=== PATIENT | male | born 1950 | race Caucasian/White ===

== ENCOUNTER 2019-01-11 16:56 | Inpatient (IN) | payer BC, OTHER ==
[~2019-01-11] VITALS: Ht 185.4 cm; Wt 173.4 kg
[2019-01-11] MEDS ORDERED: methylPREDNISolone SOD SUCC 125 MG/2 ML VL IV ONE (18:30)
[2019-01-11] MEDS ORDERED: ALBUTEROL SULF 2.5 MG/0.5ML(0.5%) NEB SOLN HHN ONE (18:30)
[2019-01-11] MEDS ORDERED: IPRATROPIUM BROM 0.5 MG/2.5ML INH SOL HHN ONE (18:30)
[2019-01-11] MEDS ORDERED: FUROSEMIDE 40 MG/4 ML VIAL IV ONE (19:45)
[2019-01-11 19:58] LABS: Basophils # (auto) 0 uL; Basophils % (auto) 0.3 % (0.0-2.0); Eosinophils # (auto) 0.1 uL; Eosinophils % (auto) 0.5 % (0.0-7.0); Hematocrit 45.6 % (41.0-53.0); Hemoglobin 14.9 g/dL (13.5-17.5); Lymphocytes # (auto) 0.5 uL; Lymphocytes % (auto) 3.8 % (10.0-50.0); Mean Corpuscular Hemoglobin 29.7 pg (28.0-32.0); Mean Corpuscular Hgb Conc. 32.7 g/dL (32.0-36.0); Mean Corpuscular Volume 90.7 fL (80.0-100.0); Monocytes # (auto) 0.6 uL; Monocytes % (auto) 4.6 % (0.0-12.0); Neutrophils % (auto) 90.8 % (37.0-80.0); Platelet Count (auto) 233 10^3/uL (140-450); Red Blood Cells 5.02 10^6/uL (4.5-5.90); Red Cell Distribution Width 14.2 % (11.8-14.3); White Blood Cell 13.2 10^3/uL (4.4-10.8)
[2019-01-11 20:10] LABS: Albumin 3.8 g/dL (3.4-5.0); Calcium 9.5 mg/dL (8.5-10.1); Potassium 4.1 mmol/L (3.5-5.1)
[2019-01-11 20:13] LABS: BUN/Creatinine Ratio 18.5; Bilirubin, Total 0.6 mg/dL (0.2-1.0); Total Protein 7.4 g/dL (6.4-8.2)
[2019-01-12] MEDS ORDERED: LORazepam 2MG/ML-1ML VIAL IV PRN (03:00)
[2019-01-12] MEDS ORDERED: ACETAMINOPHEN 500 MG TAB PO PRN (03:00)
[2019-01-12] MEDS ORDERED: ONDANSETRON HCL 4 MG/2 ML VIAL IV PRN (03:00)
[2019-01-12] MEDS ORDERED: TEMAZEPAM 15 MG CAP PO PRN (03:00)
[2019-01-12 03:35] VITALS: BP 91/42
[2019-01-12 04:39] LABS: Urine Bacteria FEW /hpf (None Seen); Urine Blood TRACE /uL (Negative); Urine Mucus FEW (None Seen); Urine WBC 8 /hpf (0 - 3)
[2019-01-12] MEDS: cefTRIAXone 1GM/50ML D5W 50 ML IV SCH (05:00)
[2019-01-12 05:31] VITALS: BP 118/62
[2019-01-12] MEDS ORDERED: DEXTROSE (50%) 50ML SYRG IV PRN (05:45)
[2019-01-12] MEDS ORDERED: PIOG15TA25 PO (05:53)
[2019-01-12] MEDS ORDERED: FINA5TAB4 PO (05:53)
[2019-01-12] MEDS ORDERED: ASPI81TA27 PO (05:53)
[2019-01-12] MEDS ORDERED: ASCO100076 PO (05:53)
[2019-01-12] MEDS ORDERED: SIMV-13 PO (05:53)
[2019-01-12] MEDS ORDERED: MULTCAP45 PO (05:53)
[2019-01-12] MEDS ORDERED: IRBE75TA3 PO (05:53)
[2019-01-12] MEDS ORDERED: AZITHROMYCIN 500MG/ 250ML 250 ML IV SCH (06:00)
[2019-01-12] MEDS ORDERED: FUROSEMIDE 20 MG/2 ML VIAL IV SCH ×2 (06:00→10:00)
[2019-01-12] MEDS: IPRATROPIUM BROM 0.5 MG/2.5ML INH SOL NEB SCH ×5 (06:56→23:00)
[2019-01-12] MEDS: ALBUTEROL SULF 2.5 MG/0.5ML(0.5%) NEB SOLN NEB SCH ×5 (06:56→23:00)
[2019-01-12] MEDS ORDERED: PNEUMOCOCCAL VACC POLYS 25 MCG/0.5 ML VIAL IM ONE (07:00)
[2019-01-12 07:15] LABS: Basophils # (auto) 0 uL; Basophils % (auto) 0.1 % (0.0-2.0); Eosinophils # (auto) 0 uL; Hematocrit 42.4 % (41.0-53.0); Hemoglobin 14.2 g/dL (13.5-17.5); Lymphocytes # (auto) 0.4 uL; Lymphocytes % (auto) 4.1 % (10.0-50.0); Mean Corpuscular Hemoglobin 30.1 pg (28.0-32.0); Mean Corpuscular Hgb Conc. 33.5 g/dL (32.0-36.0); Monocytes # (auto) 0.1 uL; Monocytes % (auto) 1.4 % (0.0-12.0); Neutrophils # (auto) 9.4 uL; Neutrophils % (auto) 94.4 % (37.0-80.0); Platelet Count (auto) 227 10^3/uL (140-450); Red Blood Cells 4.71 10^6/uL (4.5-5.90); White Blood Cell 9.9 10^3/uL (4.4-10.8)
[2019-01-12 07:30] LABS: Anion Gap 7 (5-15); BUN/Creatinine Ratio 16.3; Blood Urea Nitrogen 14 mg/dL (7-18); Calcium 8.7 mg/dL (8.5-10.1); Carbon Dioxide 26 mmol/L (21-32); Chloride 107 mmol/L (98-107); GFR African American 114 mL/min; GFR Non-African American 95 mL/min; Glucose 177 mg/dL (74-106); Potassium 3.7 mmol/L (3.5-5.1); Sodium 140 mmol/L (136-145)
[2019-01-12] MEDS: ACCU-CHEK COMFORT CURVE STRIP VI SCH ×4 (07:43→21:20)
[2019-01-12] MEDS: InsuLIN REG 1unit/0.01ml Soln (100units/ml) SC SCH ×4 (07:43→21:20)
[2019-01-12] MEDS: FINASTERIDE 5 MG TAB PO SCH (10:34)
[2019-01-12] MEDS: ASPirin-EC 81 mg tab PO SCH (10:34)
--- NOTE | 2019-01-12 17:00 | NUR ---
Telemetry admit from ER NATALYAYESSENIA admitted to Telemetry unit after SBAR received. Patient oriented to BRANDEN SANCHEZ RN primary RN, unit, room, bed, and unit policies regarding patient care and visiting hours. Patient now on continuous telemetry monitoring, tele box # 15 and telemetry reading on arrival to unit is NSR 84 bpm. Patient placed on bedside oxygen, weighed by bed scale and encouraged to call if they need something. All questions and concerns addressed, patient verbalized understanding.
[2019-01-12 17:43] VITALS: BP 134/72
--- NOTE | 2019-01-12 18:00 | NUR ---
PATIENT REFUSED INSULIN Patient blood sugar reading is 140, and 2 units of insulin is the dose due, but he is refusing insulin. No distress noted.
[2019-01-12 20:00] VITALS: BP 110/56
--- NOTE | 2019-01-12 20:00 | NUR ---
Opening Shift Note Assumed care of patient, awake and alert x4. No S/S of distress/SOB on 2l nc, denies pain. Instructed on POC, respiratory culture pending collection, patient states his cough is dry at this time. Cardio consult pending for orthopnea. Instructed to call for assist PRN, will continue to monitor for changes Q1hr and PRN.
--- NOTE | 2019-01-12 21:20 | NUR ---
Insulin refusal for BS 131
[2019-01-12 22:00] VITALS: BP 110/56
--- NOTE | 2019-01-13 00:04 | NUR ---
MD Called/paged Hospitalist called re:positive blood culture- gram positive cocci in clusters . Waiting for call back. Continue care.
[2019-01-13] MEDS: ALBUTEROL SULF 2.5 MG/0.5ML(0.5%) NEB SOLN NEB SCH ×6 (02:00→21:59)
[2019-01-13] MEDS: IPRATROPIUM BROM 0.5 MG/2.5ML INH SOL NEB SCH ×6 (02:00→21:59)
--- NOTE | 2019-01-13 02:30 | NUR ---
returned call Hospitalist Nilo returned call, updated on patient status and reason for call, notified of current antibiotic treatment and confirmed order for respiratory culture, no new orders received. Continue care.
[2019-01-13 05:00] VITALS: BP 117/57
[2019-01-13] MEDS: ACCU-CHEK COMFORT CURVE STRIP VI SCH ×4 (05:32→22:00)
[2019-01-13] MEDS: InsuLIN REG 1unit/0.01ml Soln (100units/ml) SC SCH ×4 (05:32→22:00)
[2019-01-13] MEDS: cefTRIAXone 1GM/50ML D5W 50 ML IV SCH (05:32)
--- NOTE | 2019-01-13 07:50 | NUR ---
Endorsed care to Ginger BLANCO
[2019-01-13 08:00] VITALS: BP 128/65
--- NOTE | 2019-01-13 08:03 | NUR ---
Antibiotic Spoke to pharmacy IV antibiotic time rescheduled for 0900, no IV line available for secondary antibiotic
[2019-01-13 08:56] VITALS: BP 105/72
[2019-01-13] MEDS: AZITHROMYCIN 500MG/ 250ML 250 ML IV SCH (09:08)
[2019-01-13] MEDS: FINASTERIDE 5 MG TAB PO SCH (09:28)
[2019-01-13] MEDS: ASPirin-EC 81 mg tab PO SCH (09:29)
[2019-01-13 12:33] VITALS: BP 112/53
[2019-01-13 16:44] VITALS: BP 103/51
[2019-01-13 20:00] VITALS: BP 103/32
--- NOTE | 2019-01-13 20:35 | NUR ---
Rounds Patient awake and alert x4. No S/S of distress on 2L nc improved SOB, dry cough, medicated as ordered for cough, denies pain. Will continue to monitor changes q1hr and PRN.
[2019-01-13] MEDS: PROMETHAZINE W/CODEINE 5 ML ORAL SYRUP PO PRN (20:45)
--- NOTE | 2019-01-13 23:29 | NUR ---
Rounds Patient awake and alert. No S/S of distress/SOB or pain. Will continue to monitor changes q1hr and PRN.
[2019-01-14] MEDS: IPRATROPIUM BROM 0.5 MG/2.5ML INH SOL NEB SCH ×6 (02:00→22:27)
[2019-01-14] MEDS: ALBUTEROL SULF 2.5 MG/0.5ML(0.5%) NEB SOLN NEB SCH ×6 (02:00→22:27)
--- NOTE | 2019-01-14 02:01 | NUR ---
PT REFUSED MED NEB TX AT THIS TIME. PT STATED HE WOULD LIKE TO REMAIN SLEEPING. WILL CONTINUE WITH NEXT SCHEDULED TX.
[2019-01-14 05:54] VITALS: BP 141/61
[2019-01-14] MEDS: cefTRIAXone 1GM/50ML D5W 50 ML IV SCH (06:46)
[2019-01-14] MEDS: InsuLIN REG 1unit/0.01ml Soln (100units/ml) SC SCH ×4 (06:49→21:19)
[2019-01-14] MEDS: PROMETHAZINE W/CODEINE 5 ML ORAL SYRUP PO PRN ×2 (06:49→22:51)
[2019-01-14] MEDS: ACCU-CHEK COMFORT CURVE STRIP VI SCH ×4 (06:49→21:18)
--- NOTE | 2019-01-14 07:25 | NUR ---
OPENING NOTE ASSUMED CARE OF PT. PT IS SITTING ON BED, AWAKE. HOB HIGH-FOWLERS. PT IS A&O X4. ON 2 LPM/NC, O2 SATURATION 96%. NO SIGNS OF SOB/DISTRESS. ON TELE #15, HR 82. SAFETY PRECAUTIONS IN PLACE INCLUDING, BED SET TO LOWEST POSITION/LOCKED. BEDSIDE RAILS UP X2. CALL LIGHT WITHIN REACH. INSTRUCTED PT TO CALL FOR ASSISTANCE. DISCUSSED POC WITH PT. PT VERBALIZED UNDERSTANDING. WILL CONTINUE TO MONITOR Q 1HR AND PRN.
[2019-01-14 09:00] VITALS: BP 118/67
[2019-01-14] MEDS: AZITHROMYCIN 500MG/ 250ML 250 ML IV SCH (09:35)
[2019-01-14] MEDS: FINASTERIDE 5 MG TAB PO SCH (09:35)
[2019-01-14] MEDS: ASPirin-EC 81 mg tab PO SCH (09:35)
[2019-01-14 13:00] VITALS: BP 83/48
[2019-01-14 17:00] VITALS: BP 121/69
--- NOTE | 2019-01-14 19:20 | NUR ---
ENDORSED CARE TO BELLA BLISS.
[2019-01-14 21:12] VITALS: BP 121/69
[2019-01-14 21:30] VITALS: BP 101/47
--- NOTE | 2019-01-14 22:37 | NUR ---
Respiratory note: PT IS REQUESTING NOT TO BE WOKEN UP IF HE IS SLEEPING FOR HIS NEXT SCHEDULED TX AT 0200.
[2019-01-15 04:05] VITALS: BP 151/86
[2019-01-15] MEDS: ACCU-CHEK COMFORT CURVE STRIP VI SCH ×2 (05:33→11:30)
[2019-01-15] MEDS: cefTRIAXone 1GM/50ML D5W 50 ML IV SCH (05:33)
[2019-01-15] MEDS: InsuLIN REG 1unit/0.01ml Soln (100units/ml) SC SCH ×2 (05:33→11:30)
[2019-01-15] MEDS: IPRATROPIUM BROM 0.5 MG/2.5ML INH SOL NEB SCH ×3 (07:05→14:00)
[2019-01-15] MEDS: ALBUTEROL SULF 2.5 MG/0.5ML(0.5%) NEB SOLN NEB SCH ×3 (07:05→14:00)
--- NOTE | 2019-01-15 07:25 | NUR ---
Opening Shift Note Assumed care of patient, awake and alert. No S/S of distress/SOB or pain reported at this time, currently on room air. Instructed on POC and to call for assist PRN, call light within reach, will continue to monitor for changes Q1hr and PRN.
[2019-01-15 08:00] VITALS: BP 120/78
[2019-01-15 09:00] VITALS: BP 120/78
[2019-01-15] MEDS: ASPirin-EC 81 mg tab PO SCH (10:00)
[2019-01-15] MEDS: AZITHROMYCIN 500MG/ 250ML 250 ML IV SCH (10:01)
[2019-01-15] MEDS: FINASTERIDE 5 MG TAB PO SCH (10:01)
--- NOTE | 2019-01-15 10:57 | NUR ---
MD DR LOPES AT BEDSIDE, DISCUSSING POC INCLUDING DC, CONT CARE
[2019-01-15 12:02] VITALS: BP 128/65
[2019-01-15 13:00] VITALS: BP 96/66
--- NOTE | 2019-01-15 14:35 | NUR ---
DISCHARGE Discharge instructions given to patient and daughter. Encourage to follow up with PMD as instructed, PMD out of the area, patient instructed to make a follow up appointment with Yuri Breaux, contact information provided, patient also has a senior contracts administrator located in [place] and instructed to make an appointment for outpatient stress test. All questions and concerns addressed. Patient verbalized understanding. Medication reconciliation form completed and copy given to patient. IV removed with catheter intact, pressure dressing applied. Telemetry unit returned to ICU. Patient taken to vehicle via wheelchair with all personal belongings, accompanied by staff and family member. No distress noted at time of departure.
[2019-01-15 17:19] VITALS: BP 112/58
== END 2019-01-15 14:30 | disposition home or self-care (01) | DRG 871 ==
LOC: ER 17:06 → TELE 01-12 02:58 → TELE-WESTW 01-12 17:02
PROVIDERS: ADMIT Nurse Practitioner Family; ATTEND Family Medicine
DX: A41.9 Sepsis, unspecified organism (principal); I50.33 Acute on chronic diastolic (congestive) heart failure; N39.0 Urinary tract infection, site not specified; Z68.43 Body mass index [BMI] 50.0-59.9, adult; I11.0 Hypertensive heart disease with heart failure; E11.9 Type 2 diabetes mellitus without complications; J20.9 Acute bronchitis, unspecified; B96.20 Unspecified Escherichia coli [E. coli] as the cause of diseases classified elsewhere; E66.01 Morbid (severe) obesity due to excess calories; E78.00 Pure hypercholesterolemia, unspecified; E78.5 Hyperlipidemia, unspecified; I70.0 Atherosclerosis of aorta; Z79.899 Other long term (current) drug therapy; Z23 Encounter for immunization
CPT/HCPCS: 36415; 71045; 80048; 80053; 81001; 82962; 83036; 83605; 83880; 84484; 85025; 87040; 87070; 87077; 87086; 87088; 87186; 87205; 87804; 93005; 93306; 94640; 94761; 96365; 96367; 96375; G0378; J0696

== ENCOUNTER 2019-02-06 22:30 | Emergency (ER) | payer BC ==
[~2019-02-06] VITALS: Ht 185.4 cm; Wt 179.2 kg
[~2019-02-06 22:30] MED LIST: ASCO100076 PO; ASPI81TA27 PO; FINA5TAB4 PO; IRBE75TA3 PO; MULTCAP45 PO; PIOG15TA25 PO; SIMV-13 PO
[2019-02-06 22:48] VITALS: BP 145/74
[2019-02-07] MEDS ORDERED: cefTRIAXone SOD 1,000 MG VL IM ONE (02:45)
[2019-02-07] MEDS ORDERED: KETOROLAC TROMETH 60MG/2ML VIAL IM ONE (02:45)
== END 2019-02-07 02:53 | disposition home or self-care (01) ==
LOC: ER 22:39
DX: L02.31 Cutaneous abscess of buttock (principal); K61.0 Anal abscess; E11.9 Type 2 diabetes mellitus without complications; E78.5 Hyperlipidemia, unspecified; I10 Essential (primary) hypertension; L30.9 Dermatitis, unspecified
CPT/HCPCS: 96372; 99283; J0696; J1885

== ENCOUNTER 2019-02-11 11:42 | Emergency (ER) | payer BC ==
[~2019-02-11] VITALS: Ht 185.4 cm; Wt 179.2 kg
[2019-02-11] MEDS ORDERED: cefTRIAXone SOD 1,000 MG VL IM ONE (13:00)
[2019-02-11 13:03] VITALS: BP 150/88
== END 2019-02-11 13:37 | disposition home or self-care (01) ==
LOC: ER 11:42
DX: L02.31 Cutaneous abscess of buttock (principal); E11.9 Type 2 diabetes mellitus without complications; E78.5 Hyperlipidemia, unspecified; I10 Essential (primary) hypertension; Z79.899 Other long term (current) drug therapy; Z79.82 Long term (current) use of aspirin; Z48.01 Encounter for change or removal of surgical wound dressing
CPT/HCPCS: 96372; 99283; J0696

== ENCOUNTER 2019-12-30 16:20 | Emergency (ER) | payer BC, OTHER ==
[~2019-12-30] VITALS: Ht 185.4 cm; Wt 181.4 kg
[~2019-12-30 16:20] MED LIST changes: +ASPI-404 PO; -ASPI81TA27 PO; -IRBE75TA3 PO; +IRBE75TA30 PO
[2019-12-30 18:42] LABS: Basophils # (auto) 0.1 uL; Basophils % (auto) 1.2 % (0.0-2.0); Eosinophils # (auto) 0.2 uL; Eosinophils % (auto) 2.2 % (0.0-7.0); Hematocrit 44.3 % (41.0-53.0); Hemoglobin 14.4 g/dL (13.5-17.5); Lymphocytes # (auto) 1.1 uL; Lymphocytes % (auto) 14.4 % (10.0-50.0); Mean Corpuscular Hemoglobin 29.8 pg (28.0-32.0); Mean Corpuscular Hgb Conc. 32.4 g/dL (32.0-36.0); Monocytes # (auto) 0.5 uL; Monocytes % (auto) 6.5 % (0.0-12.0); Neutrophils # (auto) 5.8 uL; Neutrophils % (auto) 75.7 % (37.0-80.0); Platelet Count (auto) 227 10^3/uL (140-450); Red Blood Cells 4.81 10^6/uL (4.5-5.90); Red Cell Distribution Width 14.3 % (11.8-14.3); White Blood Cell 7.7 10^3/uL (4.4-10.8)
[2019-12-30 18:52] LABS: Chloride 107 mmol/L (98-107); Potassium 4.2 mmol/L (3.5-5.1); Sodium 140 mmol/L (136-145)
[2019-12-30 18:57] LABS: INR 1.03 (0.9-1.15); Partial Thromboplastin Time 26.2 sec (23.64-32.05)
[2019-12-30 19:00] LABS: Alanine Aminotransferase 26 U/L (16-61); Albumin 3.6 g/dL (3.4-5.0); Alkaline Phosphatase 114 U/L (45-117); Anion Gap 4 (5-15); Aspartate Aminotransferase 16 U/L (15-37); BUN/Creatinine Ratio 13.2; Bilirubin, Total 0.6 mg/dL (0.2-1.0); Blood Urea Nitrogen 12 mg/dL (7-18); Calcium 9.2 mg/dL (8.5-10.1); Carbon Dioxide 29 mmol/L (21-32); GFR African American 107 mL/min; GFR Non-African American 88 mL/min; Glucose 87 mg/dL (74-106); Total Protein 7.2 g/dL (6.4-8.2)
[2019-12-30 19:56] LABS: Urine Bacteria NONE SEEN /hpf (None Seen); Urine Blood Negative /uL (Negative); Urine Mucus FEW (None Seen); Urine Specific Gravity 1.016 (1.001-1.035); Urine WBC 73 /hpf (0 - 3)
[2019-12-30 22:01] VITALS: BP 166/67
== END 2019-12-30 22:13 | disposition home or self-care (01) ==
LOC: ER 16:24
DX: R41.82 Altered mental status, unspecified (principal); N39.0 Urinary tract infection, site not specified; E11.9 Type 2 diabetes mellitus without complications; E78.5 Hyperlipidemia, unspecified; I10 Essential (primary) hypertension; Z79.82 Long term (current) use of aspirin; Z79.899 Other long term (current) drug therapy
CPT/HCPCS: 36415; 70450; 80053; 81001; 82962; 84484; 85025; 85610; 85730; 93005

== ENCOUNTER → 2023-01-30 | Outpatient (CLI) | payer BC ==
[~2023-01-30] MED LIST changes: -ASPI-404 PO; +ASPI-543 PO
[2023-01-30 11:38] LABS: Basophils # (auto) 0.1 10 ^3/uL (0-0.2); Basophils % (auto) 1.2 % (0.0-2.0); Eosinophils # (auto) 0.2 10 ^3/uL (0-0.8); Eosinophils % (auto) 2.3 % (0.0-7.0); Hemoglobin 14.5 g/dL (13.5-17.5); Lymphocytes # (auto) 1.5 10 ^3/uL (0.4-5.4); Lymphocytes % (auto) 22.2 % (10.0-50.0); Mean Corpuscular Hgb Conc. 33.8 g/dL (32.0-36.0); Mean Corpuscular Volume 91.8 fL (80.0-100.0); Monocytes # (auto) 0.5 10 ^3/uL (0-1.3); Monocytes % (auto) 6.7 % (0.0-12.0); Neutrophils # (auto) 4.6 10 ^3/uL (1.6-8.6); Neutrophils % (auto) 67.6 % (37.0-80.0); Nucleated Red Blood Cells % 0.1 %; Red Blood Cells 4.69 10^6/uL (4.5-5.90); Red Cell Distribution Width 13.2 % (11.8-14.3); White Blood Cell 6.8 10^3/uL (4.4-10.8)
[2023-01-30 12:08] LABS: Urine Bacteria FEW /hpf (None Seen); Urine Blood TRACE /uL (Negative); Urine Mucus FEW (None Seen); Urine Specific Gravity 1.018 (1.001-1.035); Urine WBC 89 /hpf (0 - 3)
[2023-01-30 13:00] LABS: Albumin 3.4 g/dL (3.4-5.0); BUN/Creatinine Ratio 22.2 (10.0-20.0); Bilirubin, Total 0.6 mg/dL (0.2-1.0); Calcium 8.8 mg/dL (8.5-10.1); Total Protein 6.6 g/dL (6.4-8.2)
== END | disposition home or self-care (01) ==
LOC: LAB 11:12
PROVIDERS: ATTEND Internal Medicine
DX: I10 Essential (primary) hypertension (principal); E11.9 Type 2 diabetes mellitus without complications; E66.9 Obesity, unspecified
CPT/HCPCS: 36415; 80053; 80061; 81001; 82043; 83036; 85025

== ENCOUNTER → 2023-02-17 | Outpatient (CLI) | payer BC | END | disposition home or self-care (01) | LOC: LAB 14:17 | PROVIDERS: ATTEND Urology | DX: N40.1 Benign prostatic hyperplasia with lower urinary tract symptoms (principal) | CPT/HCPCS: 84153 ==

== ENCOUNTER → 2023-02-17 | Outpatient (CLI) | payer BC | END | disposition home or self-care (01) | LOC: LAB 11:07 | PROVIDERS: ATTEND Urology | DX: N39.0 Urinary tract infection, site not specified (principal) | CPT/HCPCS: 87086; 87088; 87186 ==

== ENCOUNTER → 2023-04-06 | Outpatient (CLI) | payer BC | END | disposition home or self-care (01) | LOC: LAB 15:20 | PROVIDERS: ATTEND Internal Medicine | DX: E11.9 Type 2 diabetes mellitus without complications (principal); E78.5 Hyperlipidemia, unspecified | CPT/HCPCS: 82270 ==

== ENCOUNTER 2023-05-18 12:34 | Inpatient (IN) | payer BC ==
[~2023-05-18] VITALS: Ht 182.9 cm; Wt 181.0 kg
[~2023-05-18 12:34] MED LIST changes: -SIMV-13 PO; +SIMV40TA18 PO
[2023-05-18] MEDS ORDERED: MORPHINE SULFATE INJ 2 MG/ml SYRG IV ONE (14:15)
[2023-05-18] MEDS ORDERED: METOPROLOL TARTRATE 1MG/1ML-5ML VIAL IV ONE (14:30)
[2023-05-18 14:46] LABS: Basophils # (auto) 0 10 ^3/uL (0-0.2); Basophils % (auto) 0.2 % (0.0-2.0); Eosinophils # (auto) 0 10 ^3/uL (0-0.8); Eosinophils % (auto) 0.3 % (0.0-7.0); Hematocrit 42.3 % (41.0-53.0); Lymphocytes # (auto) 0.2 10 ^3/uL (0.4-5.4); Lymphocytes % (auto) 4.7 % (10.0-50.0); Mean Corpuscular Hemoglobin 30.7 pg (28.0-32.0); Mean Corpuscular Hgb Conc. 33.2 g/dL (32.0-36.0); Mean Corpuscular Volume 92.6 fL (80.0-100.0); Monocytes # (auto) 0 10 ^3/uL (0-1.3); Monocytes % (auto) 0.5 % (0.0-12.0); Neutrophils # (auto) 4.7 10 ^3/uL (1.6-8.6); Neutrophils % (auto) 94.3 % (37.0-80.0); Nucleated Red Blood Cells % 0.1 %; Red Blood Cells 4.57 10^6/uL (4.5-5.90); Red Cell Distribution Width 14.8 % (11.8-14.3)
[2023-05-18 14:59] LABS: INR 1.11 (0.9-1.15); Partial Thromboplastin Time 23.4 SEC (24.5-34.5)
[2023-05-18 15:15] LABS: Albumin 3.1 g/dL (3.4-5.0); Calcium 8.5 mg/dL (8.5-10.1); Magnesium 1.6 mg/dL (1.6-2.6); Potassium 3.7 mmol/L (3.5-5.1)
[2023-05-18 15:17] LABS: BUN/Creatinine Ratio 17.3 (10.0-20.0)
[2023-05-18 15:19] LABS: Bilirubin, Total 1.2 mg/dL (0.2-1.0); Total Protein 6.1 g/dL (6.4-8.2)
[2023-05-18 15:35] LABS: Urine Bacteria MANY /hpf (None Seen); Urine Blood 3+ /uL (Negative); Urine Mucus FEW (None Seen); Urine Specific Gravity 1.013 (1.001-1.035); Urine WBC 101 /hpf (0 - 3); Urine WBC Clumps PRESENT /hpf (None Seen)
[2023-05-18] MEDS ORDERED: PIPERACILLIN-TAZOB 3.375GM 100 ML IV ONE (19:30)
[2023-05-18] MEDS ORDERED: dilTIAZem 25 MG/5 ML VIAL IV ONE (19:30)
[2023-05-18] MEDS ORDERED: NITROGLYCERIN 0.4 MG SL TAB SL PRN (20:15)
[2023-05-18] MEDS ORDERED: ACETAMINOPHEN 325 MG TAB PO PRN (20:15)
[2023-05-18] MEDS ORDERED: MORPHINE SULFATE INJ 2 MG/ml SYRG IV PRN (20:15)
[2023-05-18] MEDS ORDERED: DIGOXIN (250MCG/ML) 2 ML AMPULE IV ONE (20:15)
[2023-05-18] MEDS ORDERED: ONDANSETRON HCL 4 MG/2 ML VIAL IV PRN (20:15)
[2023-05-18] MEDS ORDERED: HYDROcodone-ACET 5/325MG TAB PO PRN (20:15)
[2023-05-18] MEDS ORDERED: DEXTROSE (50%) 50ML SYRG IV PRN (20:15)
[2023-05-18] MEDS: ACCU-CHEK COMFORT CURVE STRIP VI SCH (22:29)
[2023-05-18] MEDS: InsuLIN REG 1unit/0.01ml Soln (100units/ml) SC SCH (22:35)
[2023-05-19] VITALS (12 sets, daily range): BP systolic 101–124; BP diastolic 46–80
[2023-05-19 05:53] LABS: Basophils # (auto) 0.1 10 ^3/uL (0-0.2); Basophils % (auto) 0.3 % (0.0-2.0); Eosinophils # (auto) 0.1 10 ^3/uL (0-0.8); Eosinophils % (auto) 0.3 % (0.0-7.0); Hematocrit 37.6 % (41.0-53.0); Hemoglobin 12.9 g/dL (13.5-17.5); Lymphocytes # (auto) 0.8 10 ^3/uL (0.4-5.4); Lymphocytes % (auto) 4.3 % (10.0-50.0); Mean Corpuscular Hemoglobin 31.5 pg (28.0-32.0); Mean Corpuscular Hgb Conc. 34.3 g/dL (32.0-36.0); Mean Corpuscular Volume 91.9 fL (80.0-100.0); Monocytes # (auto) 0.7 10 ^3/uL (0-1.3); Monocytes % (auto) 4.3 % (0.0-12.0); Neutrophils # (auto) 15.8 10 ^3/uL (1.6-8.6); Neutrophils % (auto) 90.8 % (37.0-80.0); Red Blood Cells 4.09 10^6/uL (4.5-5.90); Red Cell Distribution Width 14.8 % (11.8-14.3); White Blood Cell 17.4 10^3/uL (4.4-10.8)
[2023-05-19 06:03] LABS: Albumin 2.9 g/dL (3.4-5.0); Calcium 8.1 mg/dL (8.5-10.1); Potassium 3.7 mmol/L (3.5-5.1)
[2023-05-19] MEDS: InsuLIN REG 1unit/0.01ml Soln (100units/ml) SC SCH ×4 (06:11→22:00)
[2023-05-19] MEDS: ACCU-CHEK COMFORT CURVE STRIP VI SCH ×4 (06:11→21:49)
[2023-05-19] MEDS ORDERED: MAGNESIUM SULFATE 1GM/100ML 100 ML IV ONE (07:15)
[2023-05-19] MEDS ORDERED: POTASSIUM CHL 20 Meq TABLET PO ONE (07:15)
[2023-05-19 07:41] LABS: Cholesterol 67 mg/dL (< 200); HDL Cholesterol 31 mg/dL (40-59); LDL Cholesterol 36 mg/dL (< 100); Triglycerides 56 mg/dL (< 150)
[2023-05-19] MEDS ORDERED: IOHEXOL 350 MG/ML 100ML IJ ONE ×2 (07:51→14:47)
[2023-05-19] MEDS ORDERED: AMIODARONE HCL 200 MG TAB PO ONE (08:15)
[2023-05-19] MEDS ORDERED: OPTISON 3ml Vial for INJ IV ONE (09:55)
[2023-05-19] MEDS ORDERED: METOPROLOL SUCCINATE XL 50 MG TAB PO SCH (10:00)
[2023-05-19] MEDS: ENOXAPARIN SOD 40 MG/0.4 ML SYRINGE SC SCH (10:15)
[2023-05-19] MEDS ORDERED: DOXYCYCLINE 100 MG TAB/CAP PO ONE (11:00)
[2023-05-19] MEDS ORDERED: SODIUM CHLORIDE 0.9% 500 ML IV ONE (11:15)
[2023-05-19] MEDS: cefTRIAXone 1GM/50ML D5W 50 ML IV SCH (11:15)
[2023-05-19] MEDS ORDERED: LIDOCAINE 2%HCL (LOCAL ANESTH.) INJ 20ML MDV ONE (14:47)
[2023-05-19] MEDS ORDERED: ANGIOMAX 250 MG VIAL IV ONE (15:11)
[2023-05-19] MEDS ORDERED: SODIUM CHL 0.9% 0 ML ONE (15:11)
[2023-05-19] MEDS ORDERED: MIDAZOLAM HCL 2MG/2ML 2ml VIAL (1mg/ml) ONE (15:13)
[2023-05-19] MEDS ORDERED: fentaNYL CITRATE 100 MCG/2 ML VL ONE (15:13)
[2023-05-19] MEDS ORDERED: VERAPAMIL 2.5MG/ML INJ 2ML VIAL IV ONE (15:16)
[2023-05-19] MEDS ORDERED: HEPARIN SODIUM (PORCINE) 5000 UNITS/ML 1ML VIAL ONE (15:27)
[2023-05-19] MEDS ORDERED: BUMETANIDE 2.5mg/10ml (0.25 mg/ml) INJ IV ONE (15:45)
[2023-05-19] MEDS: METOPROLOL SUCCINATE XL 50 MG TAB PO SCH (15:56)
[2023-05-19] MEDS ORDERED: OXYBUTYNIN CHL 5 MG TAB PO SCH (22:00)
[2023-05-19] MEDS: DOXYCYCLINE 100 MG TAB/CAP PO SCH (22:22)
[2023-05-19] MEDS: AMIODARONE HCL 200 MG TAB PO SCH (22:23)
[2023-05-20 05:00] VITALS: BP 145/90
[2023-05-20 06:03] LABS: Basophils # (auto) 0.1 10 ^3/uL (0-0.2); Basophils % (auto) 0.6 % (0.0-2.0); Eosinophils # (auto) 0.3 10 ^3/uL (0-0.8); Eosinophils % (auto) 2.3 % (0.0-7.0); Hematocrit 39.5 % (41.0-53.0); Hemoglobin 13.5 g/dL (13.5-17.5); Lymphocytes # (auto) 1.1 10 ^3/uL (0.4-5.4); Mean Corpuscular Hemoglobin 31.2 pg (28.0-32.0); Mean Corpuscular Hgb Conc. 34.1 g/dL (32.0-36.0); Mean Corpuscular Volume 91.5 fL (80.0-100.0); Monocytes # (auto) 0.7 10 ^3/uL (0-1.3); Monocytes % (auto) 6.7 % (0.0-12.0); Neutrophils # (auto) 8.8 10 ^3/uL (1.6-8.6); Neutrophils % (auto) 80.4 % (37.0-80.0); Red Blood Cells 4.32 10^6/uL (4.5-5.90); Red Cell Distribution Width 14.8 % (11.8-14.3)
[2023-05-20 06:20] LABS: Potassium 3.6 mmol/L (3.5-5.1)
[2023-05-20] MEDS: ACCU-CHEK COMFORT CURVE STRIP VI SCH ×4 (06:21→22:00)
[2023-05-20] MEDS: InsuLIN REG 1unit/0.01ml Soln (100units/ml) SC SCH ×4 (06:22→22:00)
[2023-05-20 06:25] LABS: BUN/Creatinine Ratio 20.7 (10.0-20.0); Calcium 8.3 mg/dL (8.5-10.1); Phosphorus 2.6 mg/dL (2.5-4.90)
[2023-05-20 08:00] VITALS: BP 122/81
[2023-05-20 09:13] VITALS: BP 122/81
[2023-05-20] MEDS: cefTRIAXone 1GM/50ML D5W 50 ML IV SCH (10:22)
[2023-05-20] MEDS: AMIODARONE HCL 200 MG TAB PO SCH ×2 (10:29→22:49)
[2023-05-20] MEDS: DOXYCYCLINE 100 MG TAB/CAP PO SCH ×2 (10:29→22:45)
[2023-05-20] MEDS: ENOXAPARIN SOD 40 MG/0.4 ML SYRINGE SC SCH (10:29)
[2023-05-20] MEDS: METOPROLOL SUCCINATE XL 50 MG TAB PO SCH (10:29)
[2023-05-20] MEDS ORDERED: guaiFENesin-DM 100/10mg/5ml SYR PO PRN (10:30)
[2023-05-20 13:00] VITALS: BP 116/66
[2023-05-20] MEDS ORDERED: AZITHROMYCIN 250 MG TAB PO ONE (16:00)
[2023-05-20 17:00] VITALS: BP 138/56
[2023-05-20] MEDS: MEROPENEM 1GM IVPB 100 ML IV SCH (18:50)
[2023-05-20 22:00] VITALS: BP 134/79
[2023-05-21] MEDS: MEROPENEM 1GM IVPB 100 ML IV SCH ×2 (02:16→09:16)
[2023-05-21 05:00] VITALS: BP 135/91
[2023-05-21] MEDS: InsuLIN REG 1unit/0.01ml Soln (100units/ml) SC SCH ×4 (06:09→21:24)
[2023-05-21] MEDS: ACCU-CHEK COMFORT CURVE STRIP VI SCH ×4 (06:10→21:24)
[2023-05-21 08:00] VITALS: BP 143/84
[2023-05-21 09:00] VITALS: BP 143/84
[2023-05-21] MEDS: DOXYCYCLINE 100 MG TAB/CAP PO SCH ×2 (09:14→22:21)
[2023-05-21] MEDS: METOPROLOL SUCCINATE XL 50 MG TAB PO SCH (09:14)
[2023-05-21] MEDS: AMIODARONE HCL 200 MG TAB PO SCH ×2 (09:15→22:21)
[2023-05-21] MEDS: ENOXAPARIN SOD 40 MG/0.4 ML SYRINGE SC SCH (09:17)
[2023-05-21] MEDS ORDERED: AZITHROMYCIN 500MG/ 250ML 250 ML IV SCH (11:36)
[2023-05-21 13:00] VITALS: BP 115/73
[2023-05-21] MEDS ORDERED: ERTAPENEM SOD INJ 1 GM in SODIUM CHL 0.9% 50 ML IV ONE (16:30)
[2023-05-21 17:00] VITALS: BP 117/67
[2023-05-21] MEDS ORDERED: RIVAROXABAN 20 MG TAB PO SCH (18:00)
[2023-05-21 22:00] VITALS: BP 114/65
[2023-05-22 05:00] VITALS: BP 123/73
[2023-05-22] MEDS: ACCU-CHEK COMFORT CURVE STRIP VI SCH ×3 (05:39→17:01)
[2023-05-22] MEDS: InsuLIN REG 1unit/0.01ml Soln (100units/ml) SC SCH ×3 (05:39→17:00)
[2023-05-22 08:00] VITALS: BP 126/75
[2023-05-22 09:00] VITALS: BP 126/75
[2023-05-22] MEDS: AMIODARONE HCL 200 MG TAB PO SCH (09:17)
[2023-05-22] MEDS: DOXYCYCLINE 100 MG TAB/CAP PO SCH (09:17)
[2023-05-22] MEDS: METOPROLOL SUCCINATE XL 50 MG TAB PO SCH (09:17)
[2023-05-22] MEDS ORDERED: ERTAPENEM SOD INJ 1 GM in SODIUM CHL 0.9% 50 ML IV SCH (10:00)
[2023-05-22] MEDS ORDERED: ERGOCALCIFEROL 50,000 UNIT(1.25MG) CAP PO SCH (11:15)
[2023-05-22] MEDS ORDERED: ASPirin 81 mg TAB PO ONE (11:15)
[2023-05-22 13:00] VITALS: BP 121/80
[2023-05-22] MEDS ORDERED: FUROSEMIDE 40 MG/4 ML VIAL IV ONE (15:00)
[2023-05-22] MEDS ORDERED: ERGO1CAP23 PO (15:03)
[2023-05-22] MEDS ORDERED: AMIO200T13 PO (15:03)
[2023-05-22] MEDS ORDERED: ATO40T PO (15:03)
[2023-05-22] MEDS ORDERED: METO25TA93 PO (15:03)
[2023-05-22] MEDS ORDERED: RIV20T PO (15:03)
[2023-05-22 15:14] VITALS: BP 121/80
[2023-05-22 17:00] VITALS: BP 126/84
[2023-05-23] MEDS ORDERED: ASPirin 81 mg TAB PO SCH (10:00)
== END 2023-05-22 17:21 | disposition home health service (06) | DRG 286 ==
LOC: ER 12:34 → TELE 20:16 → TELE-CENTR 23:28
PROVIDERS: ADMIT Nurse Practitioner; ATTEND Internal Medicine
PROC: 4A023N7 Measurement of Cardiac Sampling and Pressure, Left Heart, Percutaneous Approach (ICD-10-PCS; principal; 2023-05-19)
PROC: B211YZZ Fluoroscopy of Multiple Coronary Arteries using Other Contrast (ICD-10-PCS; 2023-05-19)
PROC: B215YZZ Fluoroscopy of Left Heart using Other Contrast (ICD-10-PCS; 2023-05-19)
PROC: 05HB33Z Insertion of Infusion Device into Right Basilic Vein, Percutaneous Approach (ICD-10-PCS; 2023-05-22)
PROC: B54MZZA Ultrasonography of Right Upper Extremity Veins, Guidance (ICD-10-PCS; 2023-05-22)
DX: I48.91 Unspecified atrial fibrillation (principal); J96.00 Acute respiratory failure, unspecified whether with hypoxia or hypercapnia; N39.0 Urinary tract infection, site not specified; Z68.43 Body mass index [BMI] 50.0-59.9, adult; Z16.12 Extended spectrum beta lactamase (ESBL) resistance; I50.30 Unspecified diastolic (congestive) heart failure; D68.69 Other thrombophilia; N40.0 Benign prostatic hyperplasia without lower urinary tract symptoms; E66.01 Morbid (severe) obesity due to excess calories; E11.9 Type 2 diabetes mellitus without complications; D64.9 Anemia, unspecified; E78.5 Hyperlipidemia, unspecified; I25.10 Atherosclerotic heart disease of native coronary artery without angina pectoris; I10 Essential (primary) hypertension; K80.20 Calculus of gallbladder without cholecystitis without obstruction; R31.9 Hematuria, unspecified; R79.89 Other specified abnormal findings of blood chemistry; I11.0 Hypertensive heart disease with heart failure; E55.9 Vitamin D deficiency, unspecified; Z82.49 Family history of ischemic heart disease and other diseases of the circulatory system
CPT/HCPCS: 36415; 71045; 71275; 74176; 76705; 80048; 80053; 80061; 81001; 82306; 82962; 83036; 83690; 83735; 83880; 84100; 84443; 84484; 85025; 85379; 85610; 85730; 86850; 86900; 86901; 87086; 87088; 87186; 93005; 93306; 93458; 93970; 96365; 96375; 99152; G0378; J0696; J1335; J1815; J2185; J2250; J2543; Q9956

== ENCOUNTER → 2023-05-19 | Outpatient (CLI) | payer BC ==
[2023-05-19 16:29] LABS: Urine Bacteria MANY /hpf (None Seen); Urine Blood TRACE /uL (Negative); Urine Mucus FEW (None Seen); Urine Specific Gravity 1.021 (1.001-1.035); Urine WBC 69 /hpf (0 - 3)
== END | disposition home or self-care (01) ==
LOC: LAB 16:09
PROVIDERS: ATTEND Urology
DX: N39.0 Urinary tract infection, site not specified (principal)
CPT/HCPCS: 81001; 87086

== ENCOUNTER → 2023-05-29 | Outpatient (CLI) | payer BC ==
[~2023-05-29] MED LIST changes: +AMIO200T13 PO; +ATO40T PO; +ERGO1CAP23 PO; +METO25TA93 PO; +RIV20T PO; -SIMV40TA18 PO
[2023-05-29 12:49] LABS: Basophils # (auto) 0.1 10 ^3/uL (0-0.2); Basophils % (auto) 1.1 % (0.0-2.0); Eosinophils # (auto) 0.1 10 ^3/uL (0-0.8); Eosinophils % (auto) 1.3 % (0.0-7.0); Hematocrit 43.7 % (41.0-53.0); Hemoglobin 14.5 g/dL (13.5-17.5); Lymphocytes # (auto) 1.1 10 ^3/uL (0.4-5.4); Lymphocytes % (auto) 16.2 % (10.0-50.0); Mean Corpuscular Hemoglobin 30.7 pg (28.0-32.0); Mean Corpuscular Hgb Conc. 33.1 g/dL (32.0-36.0); Mean Corpuscular Volume 92.6 fL (80.0-100.0); Monocytes # (auto) 0.4 10 ^3/uL (0-1.3); Monocytes % (auto) 5.9 % (0.0-12.0); Neutrophils # (auto) 5.4 10 ^3/uL (1.6-8.6); Neutrophils % (auto) 75.5 % (37.0-80.0); Red Blood Cells 4.72 10^6/uL (4.5-5.90); Red Cell Distribution Width 14.6 % (11.8-14.3); White Blood Cell 7.1 10^3/uL (4.4-10.8)
== END | disposition home or self-care (01) ==
LOC: LAB 12:22
PROVIDERS: ATTEND Internal Medicine
DX: E55.9 Vitamin D deficiency, unspecified (principal); N39.0 Urinary tract infection, site not specified
CPT/HCPCS: 36415; 85025

== ENCOUNTER → 2023-06-14 | Outpatient (CLI) | payer BC ==
[2023-06-14 12:10] LABS: Urine Bacteria NONE SEEN /hpf (None Seen); Urine Blood Negative /uL (Negative); Urine Mucus FEW (None Seen); Urine Specific Gravity 1.018 (1.001-1.035); Urine WBC 1 /hpf (0 - 3)
== END | disposition home or self-care (01) ==
LOC: LAB 11:34
PROVIDERS: ATTEND Internal Medicine
DX: E11.9 Type 2 diabetes mellitus without complications (principal); E66.9 Obesity, unspecified
CPT/HCPCS: 36415; 81001; 83036

== ENCOUNTER → 2023-09-04 | Outpatient (CLI) | payer BC ==
[~2023-09-04] MED LIST changes: +AML5T PO; +SEMA2INJ3 SC; +TAMS0.4C36 PO
[2023-09-04 11:59] LABS: Chloride 107 mmol/L (98-107); Potassium 4.6 mmol/L (3.5-5.1); Sodium 142 mmol/L (136-145)
[2023-09-04 12:00] LABS: Anion Gap 5 (5-15); Carbon Dioxide 30 mmol/L (20-30)
[2023-09-04 12:01] LABS: Calcium 9.7 mg/dL (8.5-10.1)
[2023-09-04 12:05] LABS: Blood Urea Nitrogen 17 mg/dL (9-23); Glucose 104 mg/dL (74-106)
== END | disposition home or self-care (01) ==
LOC: LAB 11:19
PROVIDERS: ATTEND Internal Medicine
DX: I10 Essential (primary) hypertension (principal); E11.9 Type 2 diabetes mellitus without complications
CPT/HCPCS: 36415; 80048

== ENCOUNTER → 2023-09-18 | Outpatient (CLI) | payer BC ==
[2023-09-18 15:06] LABS: Basophils # (auto) 0.1 10 ^3/uL (0-0.2); Basophils % (auto) 0.9 % (0.0-2.0); Eosinophils # (auto) 0.2 10 ^3/uL (0-0.8); Eosinophils % (auto) 3.2 % (0.0-7.0); Hematocrit 37.4 % (41.0-53.0); Hemoglobin 12.3 g/dL (13.5-17.5); Lymphocytes # (auto) 1.3 10 ^3/uL (0.4-5.4); Lymphocytes % (auto) 20.7 % (10.0-50.0); Mean Corpuscular Hemoglobin 30.6 pg (28.0-32.0); Mean Corpuscular Volume 92.9 fL (80.0-100.0); Monocytes # (auto) 0.5 10 ^3/uL (0-1.3); Monocytes % (auto) 8.1 % (0.0-12.0); Neutrophils # (auto) 4.2 10 ^3/uL (1.6-8.6); Neutrophils % (auto) 67.1 % (37.0-80.0); Red Blood Cells 4.02 10^6/uL (4.5-5.90); Red Cell Distribution Width 14.5 % (11.8-14.3); White Blood Cell 6.3 10^3/uL (4.4-10.8)
[2023-09-18 15:27] LABS: Urine Bacteria FEW /hpf (None Seen); Urine Blood 3+ /uL (Negative); Urine Budding Yeast OCCASIONAL /hpf (None Seen); Urine Clarity HAZY (Clear); Urine Color Yellow (Yellow); Urine Mucus FEW (None Seen); Urine Protein, UAD TRACE (Negative); Urine Specific Gravity 1.021 (1.001-1.035); Urine Urobilinogen Normal (Negative); Urine WBC 123 /hpf (0 - 3); Urine pH 5.5 (5.0-8.0)
== END | disposition home or self-care (01) ==
LOC: LAB 14:34
PROVIDERS: ATTEND Internal Medicine
DX: N39.0 Urinary tract infection, site not specified (principal)
CPT/HCPCS: 36415; 81001; 85025; 87086

== ENCOUNTER → 2023-09-27 | Outpatient (CLI) | payer BC ==
[2023-09-27 16:56] LABS: Urine Bacteria NONE SEEN /hpf (None Seen); Urine Blood 3+ /uL (Negative); Urine Budding Yeast MODERATE /hpf (None Seen); Urine Clarity HAZY (Clear); Urine Color Yellow (Yellow); Urine Protein, UAD 1+ (Negative); Urine Specific Gravity 1.023 (1.001-1.035); Urine Urobilinogen Normal (Negative); Urine WBC 328 /hpf (0 - 3); Urine pH 5.5 (5.0-8.0)
== END | disposition home or self-care (01) ==
LOC: LAB 16:31
PROVIDERS: ATTEND Internal Medicine
DX: N39.0 Urinary tract infection, site not specified (principal)
CPT/HCPCS: 81001; 87086

== ENCOUNTER → 2023-10-10 | Outpatient (CLI) | payer BC ==
[2023-10-10 13:24] LABS: Basophils # (auto) 0.1 10 ^3/uL (0-0.2); Eosinophils # (auto) 0.1 10 ^3/uL (0-0.8); Eosinophils % (auto) 1.8 % (0.0-7.0); Hematocrit 40.8 % (41.0-53.0); Hemoglobin 13.7 g/dL (13.5-17.5); Lymphocytes # (auto) 1.2 10 ^3/uL (0.4-5.4); Lymphocytes % (auto) 17.9 % (10.0-50.0); Mean Corpuscular Hgb Conc. 33.6 g/dL (32.0-36.0); Mean Corpuscular Volume 92.5 fL (80.0-100.0); Monocytes # (auto) 0.5 10 ^3/uL (0-1.3); Monocytes % (auto) 6.7 % (0.0-12.0); Neutrophils # (auto) 4.9 10 ^3/uL (1.6-8.6); Neutrophils % (auto) 72.6 % (37.0-80.0); Nucleated Red Blood Cells % 0.1 %; Red Blood Cells 4.41 10^6/uL (4.5-5.90); Red Cell Distribution Width 14.5 % (11.8-14.3); White Blood Cell 6.7 10^3/uL (4.4-10.8)
[2023-10-10 13:58] LABS: Alanine Aminotransferase 22 U/L (7-40); Albumin 4.4 g/dL (3.2-4.8); Alkaline Phosphatase 108 U/L (46-116); Anion Gap 6 (5-15); Aspartate Aminotransferase 13 U/L (13-40); BUN/Creatinine Ratio 13.8 (10.0-20.0); Bilirubin, Total 0.8 mg/dL (0.2-1.0); Blood Urea Nitrogen 16 mg/dL (9-23); Calcium 10.2 mg/dL (8.5-10.1); Carbon Dioxide 29 mmol/L (20-30); Chloride 106 mmol/L (98-107); Glucose 105 mg/dL (74-106); Potassium 5.1 mmol/L (3.5-5.1); Sodium 141 mmol/L (136-145); Total Protein 6.7 g/dL (5.7-8.2)
== END | disposition home or self-care (01) ==
LOC: LAB 12:58
PROVIDERS: ATTEND Ophthalmology
DX: H25.12 Age-related nuclear cataract, left eye (principal)
CPT/HCPCS: 36415; 80053; 85025; 87086

== ENCOUNTER → 2023-11-08 | Outpatient (CLI) | payer BC ==
[2023-11-08 15:23] LABS: Urine Bacteria MOD /hpf (None Seen); Urine Blood TRACE /uL (Negative); Urine Clarity Clear (Clear); Urine Color Yellow (Yellow); Urine Mucus FEW (None Seen); Urine Protein, UAD Negative (Negative); Urine Specific Gravity 1.025 (1.001-1.035); Urine Urobilinogen Normal (Negative); Urine WBC 47 /hpf (0 - 3)
== END | disposition home or self-care (01) ==
LOC: LAB 15:05
PROVIDERS: ATTEND Internal Medicine
DX: N39.0 Urinary tract infection, site not specified (principal)
CPT/HCPCS: 81001; 87086

== ENCOUNTER → 2023-12-25 | Outpatient (CLI) | payer BC ==
[2023-12-25 13:28] LABS: Chloride 108 mmol/L (98-107); Potassium 4.6 mmol/L (3.5-5.1); Sodium 140 mmol/L (136-145)
[2023-12-25 13:29] LABS: Anion Gap 3 (5-15); Calcium 9.7 mg/dL (8.5-10.1); Carbon Dioxide 29 mmol/L (20-30)
[2023-12-25 13:34] LABS: BUN/Creatinine Ratio 10.8 (10.0-20.0); Blood Urea Nitrogen 12 mg/dL (9-23); Glucose 90 mg/dL (74-106)
== END | disposition home or self-care (01) ==
LOC: LAB 12:02
PROVIDERS: ATTEND Internal Medicine
DX: E11.9 Type 2 diabetes mellitus without complications (principal); R06.02 Shortness of breath
CPT/HCPCS: 36415; 80048; 83036; 83880

== ENCOUNTER → 2024-01-15 | Outpatient (CLI) | payer BC, OTHER | END | disposition home or self-care (01) | LOC: LAB 15:41 | PROVIDERS: ATTEND Internal Medicine | DX: E11.9 Type 2 diabetes mellitus without complications (principal) | CPT/HCPCS: 82270 ==

== ENCOUNTER → 2024-06-10 | Outpatient (CLI) | payer OTHER ==
[~2024-06-10] MED LIST changes: -ATO40T PO; +ATOR-507 PO
[2024-06-10 13:20] LABS: Chloride 107 mmol/L (98-107); Potassium 4.2 mmol/L (3.5-5.1); Sodium 142 mmol/L (136-145)
[2024-06-10 13:21] LABS: Anion Gap 7 (5-15); Carbon Dioxide 28 mmol/L (20-30)
[2024-06-10 13:22] LABS: Calcium 9.9 mg/dL (8.7-10.4)
[2024-06-10 13:26] LABS: BUN/Creatinine Ratio 15.3 (10.0-20.0); Blood Urea Nitrogen 17 mg/dL (9-23); Glucose 97 mg/dL (74-106)
[2024-06-10 13:38] LABS: Triglycerides 58 mg/dL (< 150)
[2024-06-10 13:39] LABS: Creatinine, Urine 76.08 mg/dL (30.0-125.0); LDL Cholesterol 51 mg/dL (< 100)
[2024-06-10 13:40] LABS: Cholesterol 99 mg/dL (< 200); HDL Cholesterol 38 mg/dL (40-59)
== END | disposition home or self-care (01) ==
LOC: LAB 12:12
PROVIDERS: ATTEND Internal Medicine
DX: I11.0 Hypertensive heart disease with heart failure (principal); I50.9 Heart failure, unspecified; E11.9 Type 2 diabetes mellitus without complications; E66.9 Obesity, unspecified
CPT/HCPCS: 36415; 80048; 80061; 82043; 82570; 84153

== ENCOUNTER → 2024-06-27 | Outpatient (CLI) | payer OTHER ==
[~2024-06-27] MED LIST changes: -TAMS0.4C36 PO; +TAMS0.4C39 PO
== END | disposition home or self-care (01) ==
LOC: XYW 11:15
PROVIDERS: ATTEND Internal Medicine
DX: I51.7 Cardiomegaly (principal); I31.39 Other pericardial effusion (noninflammatory); R60.9 Edema, unspecified
CPT/HCPCS: 93306

== ENCOUNTER → 2024-09-02 | Outpatient (CLI) | payer OTHER ==
[2024-09-02 11:38] LABS: Basophils # (auto) 0.1 10 ^3/uL (0-0.2); Basophils % (auto) 0.6 % (0.0-2.0); Eosinophils # (auto) 0.2 10 ^3/uL (0-0.8); Eosinophils % (auto) 2.3 % (0.0-7.0); Hematocrit 42.3 % (41.0-53.0); Hemoglobin 14.3 g/dL (13.5-17.5); Lymphocytes # (auto) 1.5 10 ^3/uL (0.4-5.4); Lymphocytes % (auto) 19.8 % (10.0-50.0); Mean Corpuscular Hemoglobin 31.5 pg (28.0-32.0); Mean Corpuscular Hgb Conc. 33.9 g/dL (32.0-36.0); Mean Corpuscular Volume 92.9 fL (80.0-100.0); Monocytes # (auto) 0.5 10 ^3/uL (0-1.3); Monocytes % (auto) 6.2 % (0.0-12.0); Neutrophils # (auto) 5.5 10 ^3/uL (1.6-8.6); Neutrophils % (auto) 71.1 % (37.0-80.0); Platelet Count (auto) 240 10^3/uL (140-450); Red Blood Cells 4.56 10^6/uL (4.5-5.90); Red Cell Distribution Width 16.2 % (11.8-14.3); White Blood Cell 7.8 10^3/uL (4.4-10.8)
== END | disposition home or self-care (01) ==
LOC: LAB 10:50
PROVIDERS: ATTEND Internal Medicine
DX: E11.9 Type 2 diabetes mellitus without complications (principal); E78.5 Hyperlipidemia, unspecified
CPT/HCPCS: 36415; 85025

== ENCOUNTER → 2024-11-08 | Outpatient (CLI) | payer OTHER ==
[~2024-11-08] VITALS: Ht 185.4 cm; Wt 186.0 kg
[2024-11-08] MEDS: REGADENOSON 0.4 MG/5 ML SYRG IV ONE ×2 (11:10)
--- NOTE | 2024-11-08 12:47 | DVHSR ---
APPROVED REPORT Exam: Nuclear Stress Test BMI: 0 Stress Test Details HR Max Heart Rate (APMHR): 148.879969 bpm Target HR (85% APMHR): 125.118935 bpm BP ECG Stress ECG Conclusion Resting images shows [id number] severe defect in the inferior basal to mid segment could repr esent an establish old inferior infarction versus diaphragmatic attenuation. Stress images shows the same defect in the inferior basal to mid segment likely representing myocardi al infarction versus diaphragmatic attenuation clinical correlation is required. Mildly reduced ejection fraction at 47%. Impression: Possible inferior myocardial infarction, versus diaphragmatic attenuation without eviden ce of ischemia, low risk study. NM EXAM: Myocardial Perfusion REST/STRESS Imaging Protocol: Rest Tc-99m/Stress Tc-99m 1 day Resting Data Rest SPECT myocardial perfusion imaging was performed in supine position 60 minutes following the int ravenous injection of 15.5 mCi of Tc-99m Sestamibi. Time of rest injection: 1000 Time of rest imagin Administration Route: IV Administration Site: Right AC Pharmacologic Stress Pharmacologic stress test was performed by injecting Regadenoson 0.4 mg IV push followed by the intra venous injection of 38.2 mCi of Tc-99m Sestamibi. Time of stress injection: 1110 Time of stress imagin Administration Route: IV Administration Site: Right AC Gated Stress SPECT was performed 60 minutes after stress injection. The images were gated to evaluate regional wall motion and calculate left ventricular ejection fracti on. Stress only was performed in the Supine position. Nuclear Conclusion ECG Findings: negative for ischemia Clinical Findings: negative for ischemia Nuclear Findings: negative for ischemia Exercise Capacity: not assessed Left Ventricular Function: abnormal Risk Study: low Resting images shows [id number] severe defect in the inferior basal to mid segment could repr esent an establish old inferior infarction versus diaphragmatic attenuation. Stress images shows the same defect in the inferior basal to mid segment likely representing myocardi al infarction versus diaphragmatic attenuation clinical correlation is required. Mildly reduced ejection fraction at 47%. Impression: Possible inferior myocardial infarction, versus diaphragmatic attenuation without eviden ce of ischemia, low risk study.
== END | disposition home or self-care (01) ==
LOC: XYW 10:12
PROVIDERS: ATTEND Internal Medicine
DX: I50.9 Heart failure, unspecified (principal)
CPT/HCPCS: 78452; 93017; A9500; J2785

== ENCOUNTER → 2024-12-23 | Outpatient (CLI) | payer OTHER ==
[2024-12-23 12:22] LABS: Alanine Aminotransferase 22 U/L (7-40); Albumin 4.3 g/dL (3.2-4.8); Alkaline Phosphatase 113 U/L (46-116); Anion Gap 5 (5-15); BUN/Creatinine Ratio 13.4 (10.0-20.0); Bilirubin, Total 0.7 mg/dL (0.2-1.0); Blood Urea Nitrogen 15 mg/dL (9-23); Calcium 9.7 mg/dL (8.7-10.4); Carbon Dioxide 31 mmol/L (20-31); Chloride 104 mmol/L (98-107); Glucose 95 mg/dL (74-106); Potassium 4.4 mmol/L (3.5-5.1); Sodium 140 mmol/L (136-145); Total Protein 6.4 g/dL (5.7-8.2)
[2024-12-23 12:26] LABS: Aspartate Aminotransferase 11 U/L (13-40)
[2024-12-23 12:43] LABS: Creatinine, Urine 90.08 mg/dL (30.0-125.0)
== END | disposition home or self-care (01) ==
LOC: LAB 10:53
PROVIDERS: ATTEND Internal Medicine
DX: E11.9 Type 2 diabetes mellitus without complications (principal)
CPT/HCPCS: 36415; 80053; 82043; 82570; 83036

== ENCOUNTER → 2025-03-24 | Outpatient (CLI) | payer OTHER ==
[2025-03-24 11:31] LABS: Creatinine, Urine 88.7 mg/dL (30.0-125.0)
[2025-03-24 11:35] LABS: Alanine Aminotransferase 19 U/L (7-40); Albumin 4.2 g/dL (3.2-4.8); Alkaline Phosphatase 106 U/L (46-116); Anion Gap 7 (5-15); BUN/Creatinine Ratio 12.1 (10.0-20.0); Blood Urea Nitrogen 13 mg/dL (9-23); Calcium 9.3 mg/dL (8.7-10.4); Carbon Dioxide 28 mmol/L (20-31); Chloride 106 mmol/L (98-107); Glucose 99 mg/dL (74-106); Potassium 4.3 mmol/L (3.5-5.1); Sodium 141 mmol/L (136-145); Total Protein 6.5 g/dL (5.7-8.2)
[2025-03-24 11:42] LABS: Aspartate Aminotransferase 10 U/L (13-40); Bilirubin, Total 1.2 mg/dL (0.2-1.0)
== END | disposition home or self-care (01) ==
LOC: LAB 10:26
PROVIDERS: ATTEND Internal Medicine
DX: E11.9 Type 2 diabetes mellitus without complications (principal); J44.9 Chronic obstructive pulmonary disease, unspecified; E78.5 Hyperlipidemia, unspecified; Z00.00 Encounter for general adult medical examination without abnormal findings
CPT/HCPCS: 36415; 80053; 82043; 82570

== ENCOUNTER 2025-06-23 10:55 | Outpatient (CLI) | payer OTHER ==
[2025-06-23 11:40] LABS: Potassium 4.4 mmol/L (3.5-5.1); Sodium 144 mmol/L (136-145)
[2025-06-23 11:41] LABS: Anion Gap 6 (5-15); Carbon Dioxide 30 mmol/L (20-31)
[2025-06-23 11:42] LABS: Calcium 9.4 mg/dL (8.7-10.4)
[2025-06-23 11:46] LABS: Glucose 99 mg/dL (74-106); Microalb/Creat Ratio, Urine 61.0
[2025-06-23 11:47] LABS: BUN/Creatinine Ratio 11.4 (10.0-20.0); Blood Urea Nitrogen 12 mg/dL (9-23); Chloride 108 mmol/L (98-107); Triglycerides 48 mg/dL (< 150)
[2025-06-23 11:49] LABS: Cholesterol 94 mg/dL (< 200); HDL Cholesterol 31 mg/dL (40-59)
== END 2025-06-23 17:00 | disposition home or self-care (01) ==
LOC: LAB 10:55
PROVIDERS: ATTEND Internal Medicine
DX: I10 Essential (primary) hypertension (principal); E11.9 Type 2 diabetes mellitus without complications
CPT/HCPCS: 36415; 80048; 80061; 82043; 82570; 83036

== ENCOUNTER 2025-09-29 11:16 | Outpatient (CLI) | payer OTHER ==
[2025-09-29 12:38] LABS: Alanine Aminotransferase 36 U/L (7-40); Anion Gap 9 (5-15); Calcium 9.7 mg/dL (8.7-10.4); Carbon Dioxide 31 mmol/L (20-31); Chloride 106 mmol/L (98-107); Glucose 97 mg/dL (74-106); Potassium 4.2 mmol/L (3.5-5.1); Triglycerides 34 mg/dL (< 150)
[2025-09-29 12:39] LABS: Albumin 4.2 g/dL (3.2-4.8); BUN/Creatinine Ratio 18.0 (10.0-20.0); Bilirubin, Total 0.8 mg/dL (0.2-1.0); Blood Urea Nitrogen 18 mg/dL (9-23); Cholesterol 102 mg/dL (< 200); Total Protein 6.9 g/dL (5.7-8.2)
[2025-09-29 12:43] LABS: Alkaline Phosphatase 140 U/L (46-116); HDL Cholesterol 35 mg/dL (40-59); Sodium 146 mmol/L (136-145)
== END 2025-09-29 17:00 | disposition home or self-care (01) ==
LOC: LAB 11:16
PROVIDERS: ATTEND Internal Medicine
DX: E11.9 Type 2 diabetes mellitus without complications (principal); I50.22 Chronic systolic (congestive) heart failure
CPT/HCPCS: 36415; 80053; 80061; 82951; 82952